=== PATIENT | male | born 1935 | race Caucasian/White ===

== ENCOUNTER 2017-06-06 12:05 | Inpatient (IN) | payer MEDICARE ==
[~2017-06-06] VITALS: Ht 187.9 cm; Wt 96.8 kg
--- NOTE | ~2017-06-06 | PR ---
[place], [place] PROGRESS NOTE NAME: [id number] UNIT #: [id number] ROOM: 309 DOCTOR: CATHERINE DEXTER MD BIRTHDATE: [birth year] DOS: 06/08/2017 CHIEF COMPLAINT: "Morning, when do I get out of here, which way do I go." SUMMARY OF THE VISIT: The patient was interviewed as he rested quietly in bed. He did report that he was up this morning and had breakfast and is now anxious to find the way out. Nurses report, he has been rather subdued, but has been also exhibiting some scanning behavior, looking for a way out of the facility. He remains alert, but confused. MENTAL STATUS: He is alert and oriented to person, possibly place in that he knows he is in the hospital, but he does not know he is in [facility]. He could not tell me how long he has been here. Mood does seem to be still somewhat labile and at times affect is inappropriate. His responses are short and simple use, usually at times not appropriate to the question asked. PLAN: At this point in time, I will maintain his current psychotropic regimen. I will discontinue his daily vitamin D in lieu of vitamin D 50,000 International Units weekly. I will check a valproic acid level in the a.m. tomorrow to ensure that it is therapeutic and not too high or too low. We will engage in individual and henry milieu activity, returning to the least restrictive environment when psychiatrically stable. CATHERINE DEXTER MD CM:PNTRANS 8 2 CATHERINE DEXTER MD 06/08/1733 interface
--- NOTE | ~2017-06-06 | DS ---
[place], [place] DISCHARGE SUMMARY NAME: TAMMY PARDO [facility] #: [id number] UNIT #: [id number] ROOM: 309 DOCTOR: CATHERINE DEXTER MD BIRTHDATE: [birth year] DOS: 06/11/2017 CHIEF COMPLAINT: "I don't know why I am here." HISTORY OF PRESENT ILLNESS: This is an 82-year-old white male who is a resident of the [facility]. The patient is admitted now due to significant altered mental status. The patient has been refusing to come out of his room and has not been attending to his ADLs. He is refusing care and refusing to shower. He has only been eating 1 meal a day while at the assisted living facility. He has become exit seeking and on multiple occasions has exited the door that will lock and not allow reentry. He has done so in the freezing cold and staff is concerned, he will injure himself in the process. He has been episodically noncompliant with all his medications and he has been found to be increasingly more confused. He is admitted now to rule out organic factors, to stabilize on medication and then to return to the least restrictive environment when psychiatrically stable. PAST MEDICAL HISTORY: Remarkable for atrial fibrillation, benign prostatic hypertrophy, coronary artery disease, dementia, GERD, Hodgkin's lymphoma, hyperlipidemia, hypothyroidism and vitamin D deficiency. SUMMARY OF HOSPITAL COURSE: The patient was admitted to the unit where he was maintained on Exelon 6 mg b.i.d. and Namenda XR was switched to Namenda 10 mg b.i.d. His Risperdal was discontinued and instead, he was placed on Depakote 500 mg 3 times a day. He was maintained on Remeron 15 mg a day. With the Depakote in place, he had a dramatic and significant improvement. It did seem to augment the effectiveness of the antidepressant and stabilize his mood. He became much more interactive and much more compliant with care. A valproic acid level obtained on June 09 was therapeutic at 82.3. He exhibited no side effects from the medications and did seem to improve gradually to the point where he was pleasant and cooperative and voicing positive plans for the future. He was discharged back to the [facility]. MENTAL STATUS AT DISCHARGE: The patient is alert and oriented to self, possibly place, not time. Mood does seem to be more euthymic. Affect is more appropriate. There are no symptoms of hypomania or guerline. There are no overt auditory or visual hallucinations. No delusions, no paranoia. Short term memory is poor and he does process slowly. FINAL DIAGNOSES: Major depression, recurrent, severe, and impulse control disorder. PLAN: All of his prescriptions have been e-scribed to the institutional pharmacy. I will follow him upon his readmission to the [facility]. [place], [place] DISCHARGE SUMMARY NAME: TAMMY PARDO UNIT #: [id number] ROOM: 309 DOCTOR: CATHERINE DEXTER MD BIRTHDATE: [birth year] CATHERINE DEXTER MD CM:DISCHARG [id number] CATHERINE DEXTER MD 06/11/17 1144 interface
--- NOTE | ~2017-06-06 | PR ---
[place], [place] PROGRESS NOTE [id number] UNIT #: [id number] ROOM: 309 DOCTOR: CATHERINE DEXTER MD BIRTHDATE: [birth year] DOS: 06/10/2017 CHIEF COMPLAINT: "Morning." SUMMARY OF THE VISIT: The patient was interviewed as he rested quietly in bed. He engaged in superficial brief conversation. He denied any issues, stating that he slept well, had breakfast and is just feeling a little sleepy at the present time. He was much more conversant this morning than he had been previously and did engage in more goal-directed conversation than he had previously. He reports no side effects from the medicine and reports he is doing well and is anxious to be able to return home soon. MENTAL STATUS: He is alert and oriented to person, possibly place, not time. Mood does seem to be trending towards euthymia. Affect is more appropriate. There are no symptoms of hypomania or guerline. There are no overt auditory or visual hallucinations. No delusions, no paranoia. Short term memory is poor. PLAN: I will maintain his current dose of Exelon and Namenda. Continue the Depakote as his level is therapeutic and continue the Remeron for the depression. Engage in individual and henry milieu activity, returning home when stable. CATHERINE DEXTER MD CM:PNTRANS [id number] CATHERINE DEXTER MD 06/10/17 1122 interface
--- NOTE | ~2017-06-06 | WRIGHTHP ---
[place], [place] PATIENT HISTORY AND PHYSICAL EXAM [id number] UNIT #: [id number] ROOM: 309 DOCTOR: CATHERINE DEXTER MD BIRTHDATE: [birth year] DOS: 06/07/2017 INITIAL PSYCHIATRIC EVALUATION CHIEF COMPLAINT: "I don't know why I am here." HISTORY OF PRESENT ILLNESS: This is an 82-year-old white male who is a resident of the [facility]. The patient is admitted now due to significant altered mental status. The patient has been refusing to come out of his room and has not been attending to his ADLs. He is refusing care and refusing to shower. He had only been eating 1 meal a day while at the assisted living facility. Additionally, the patient has been exit seeking and on multiple occasions has exited the door that will not allow reentry. He has done so in the freezing cold and staff is concerned that he will injure himself in the process. The patient has been episodically noncompliant with his medication and has been found to be increasingly more confused. He is admitted now to rule out any organic factors, to stabilize on medication and to return to the least restrictive environment when psychiatrically stable. PAST MEDICAL HISTORY: Remarkable for atrial fibrillation, benign prostatic hypertrophy, coronary artery disease, dementia, GERD, Hodgkin lymphoma, hyperlipidemia, hypothyroidism, vitamin D deficiency. MENTAL STATUS: The patient is alert and oriented to person. He does realize he is in the hospital, but does not know necessarily what hospital and he could not necessarily tell me how long he has been here. His responses tended to be short and simple, rather vague for the most part. He was pleasant, however, and cooperative. He did not offer any agitation or aggression. No hypomania or guerline was noted. There were no overt auditory or visual hallucinations, delusions or paranoia. Short-term memory has gaps and he processes slowly. DIAGNOSES: Major depression, recurrent, severe and Alzheimer dementia. PLAN: The patient was restarted on Remeron 15 mg at bedtime. He was also given Depakote to augment the effectiveness of the Remeron. Risperdal which was being prescribed at the skilled nursing was discontinued. The patient was also maintained on Exelon 6 mg b.i.d. and Namenda 10 mg twice daily. We will continue to engage him in individual and henry milieu activity with the plan to return to the least restrictive environment when stable. [place], [place] PATIENT HISTORY AND PHYSICAL EXAM NAME: TAMMY PARDO UNIT #: [id number] ROOM: 309 DOCTOR: CATHERINE DEXTER MD BIRTHDATE: [birth year] CATHERINE DEXTER MD CM:HISPHYS:PATIENT HISTORY AND PHYSICAL EXAMINATION 0 CATHERINE DEXTER MD 06/07/17 0943 interface
--- NOTE | ~2017-06-06 | PR ---
[place], [place] [facility]GRESS NOTE [id number] UNIT #: [id number] ROOM: 309 DOCTOR: CATHERINE DEXTER MD BIRTHDATE: [birth year] DOS: 06/09/2017 CHIEF COMPLAINT: "It looks cooled out." SUMMARY OF THE VISIT: The patient was interviewed as he was sitting in the dining area with a blanket wrapped around him. He engaged readily in conversation, but remains very confused and disjointed. His responses are very vague and at times inappropriate. Nurses report that last evening he stood up out of bed unassisted and urinated on the floor. He does remain as mentioned previously very confused and disorganized. MENTAL STATUS: He is alert and oriented to self. He may realize he is in the hospital, but he is not oriented to time. Mood still is somewhat labile. Affect at times is inappropriate. Responses are short and simple, at times inappropriate. PLAN: Valproic acid level was therapeutic at 82.3. He is on the maximum dose of both Namenda and Exelon. At this point, I will add Deplin 15 mg daily to see if this will impact at all on cognition. We will engage in individual and henry milieu activity with the plan to return to the least restrictive environment when psychiatrically stable. CATHERINE DEXTER MD CM:PNTRANS 7 [phone] CATHERINE DEXTER MD 06/09/17 1032 interface
[2017-06-06] MEDS ORDERED: LIPITOR10 MG PO (13:31)
[2017-06-06] MEDS ORDERED: PLAVIX75 M1 PO (13:32)
[2017-06-06] MEDS ORDERED: 24 HOUR ALLER15.8 ML NAS (13:33)
[2017-06-06] MEDS ORDERED: VITAMIN D22000 UNIT PO (13:34)
[2017-06-06] MEDS ORDERED: RIVASTIGMINE TAR6 M1 PO (13:34)
[2017-06-06] MEDS ORDERED: WARFARIN SODIUM4 MG PO (13:35)
[2017-06-06] MEDS ORDERED: TOPROL XL25 MG PO (13:35)
[2017-06-06] MEDS ORDERED: REMERON15 M2 PO (13:36)
[2017-06-06] MEDS ORDERED: Synthroid,Levo50 MCG PO (13:37)
[2017-06-06] MEDS ORDERED: RISPERDAL1 M1 PO (13:38)
[2017-06-06] MEDS ORDERED: NAMENDA-28 PO (13:39)
[2017-06-06 14:59] VITALS: BP 143/69
[2017-06-06 15:29] VITALS: BP 143/69
[2017-06-06 16:30] LABS: INTERNATIONAL NORM RATIO 1.5 (2.0-3.5)
[2017-06-06 21:44] VITALS: BP 128/62
[2017-06-07 02:12] LABS: BILIRUBIN NEGATIVE (NEGATIVE); BLOOD TRACE-INTACT (NEGATIVE); CLARITY CLEAR (CLEAR); COLOR YELLOW (YELLOW); GLUCOSE NEGATIVE (NEGATIVE); KETONE NEGATIVE (NEGATIVE); LEUKO ESTERASE NEGATIVE (NEGATIVE); NITRITE NEGATIVE (NEGATIVE); SPECIFIC GRAVITY 1.015 (1.005-1.030)
[2017-06-07 07:31] LABS: BASO # 0.1 10*3/uL (0.0-0.1); BASO % 0.9 % (0.0-1.0); EOS # 0.3 10*3/uL (0.0-0.4); EOS % 4.5 % (1.0-4.0); HEMATOCRIT 44.7 % (42.0-52.0); HEMOGLOBIN 15.2 g/dl (14.0-18.0); LYMPH # 0.8 10*3/uL (1.3-4.4); LYMPH % 11.7 % (27.0-41.0); MEAN CELL VOLUME 85.6 fl (80.0-94.0); MEAN CORPUSCULAR HGB 29.1 pg (27.0-31.0); MEAN PLATELET VOLUME 9.6 fl (9.6-12.3); MONO # 0.6 10*3/uL (0.1-1.0); MONO % 9.5 % (3.0-9.0); NEUT # 4.7 10*3/uL (2.3-7.9); NEUT % 73.1 % (47.0-73.0); PLATELET COUNT AUTOMATED 139 10*3/uL (130-400); RED BLOOD COUNT 5.22 10*6/uL (4.50-5.90); RED CELL DISTRI WIDTH 15.3 % (0-14.5); WHITE BLOOD COUNT 6.4 10*3/uL (4.8-10.8)
[2017-06-07 07:51] VITALS: BP 115/60
[2017-06-07 08:01] LABS: INTERNATIONAL NORM RATIO 1.5 (2.0-3.5)
[2017-06-07 08:04] LABS: ALBUMIN 3.5 gm/dl (3.1-4.5); CREATININE 1.4 mg/dL (0.70-1.30); POTASSIUM 4.6 mmol/L (3.5-5.1); TOTAL PROTEIN 7.1 gm/dL (6.4-8.2)
[2017-06-07 08:11] LABS: THYROID STIM HORMONE (HS) 4.02 uIU/ml (0.358-4.75)
[2017-06-07 08:12] LABS: VITAMIN D, 25-HYDROXY 27.3 ng/mL (30-100)
[2017-06-07 19:43] VITALS: BP 123/76
[2017-06-08 06:24] LABS: INTERNATIONAL NORM RATIO 2.2 (2.0-3.5)
[2017-06-08 07:45] VITALS: BP 143/76
[2017-06-08 19:53] VITALS: BP 119/72
[2017-06-09 07:44] LABS: INTERNATIONAL NORM RATIO 2.8 (2.0-3.5)
[2017-06-09 08:04] VITALS: BP 124/80
[2017-06-09 20:00] VITALS: BP 144/54
[2017-06-10 07:22] LABS: INTERNATIONAL NORM RATIO 3.6 (2.0-3.5)
[2017-06-10 07:49] VITALS: BP 114/62
[2017-06-10 20:00] VITALS: BP 128/63
[2017-06-11 07:53] LABS: INTERNATIONAL NORM RATIO 3.4 (2.0-3.5)
[2017-06-11] MEDS ORDERED: MIRTAZAPINE15 M2 PO (09:00)
[2017-06-11] MEDS ORDERED: MEMANTINE HCL10 MG PO (09:00)
[2017-06-11 09:34] VITALS: BP 142/73
[2017-06-11] MEDS ORDERED: VITAMIN D31000 UNIT PO (11:39)
== END 2017-06-11 15:00 | disposition home or self-care (01) | DRG 885 ==
LOC: 3N 12:05
PROVIDERS: Internal Medicine Nephrology; Psychiatry & Neurology Psychiatry
DX: F33.2 Major depressive disorder, recurrent severe without psychotic features (principal); G30.9 Alzheimer's disease, unspecified; F02.81 Dementia in other diseases classified elsewhere, unspecified severity, with behavioral disturbance; I48.1 Persistent atrial fibrillation; F23 Brief psychotic disorder; F63.9 Impulse disorder, unspecified; I25.10 Atherosclerotic heart disease of native coronary artery without angina pectoris; N40.0 Benign prostatic hyperplasia without lower urinary tract symptoms; K21.9 Gastro-esophageal reflux disease without esophagitis; E78.5 Hyperlipidemia, unspecified; E03.9 Hypothyroidism, unspecified; R79.1 Abnormal coagulation profile; E66.3 Overweight; E55.9 Vitamin D deficiency, unspecified; Z81.1 Family history of alcohol abuse and dependence; Z88.8 Allergy status to other drugs, medicaments and biological substances; Z79.899 Other long term (current) drug therapy; Z68.27 Body mass index [BMI] 27.0-27.9, adult; Z79.01 Long term (current) use of anticoagulants